=== PATIENT | female | born 1960 | race Caucasian/White ===

== ENCOUNTER 2018-08-01 22:19 | Emergency (ER) | payer OTHER ==
[~2018-08-01] VITALS: Ht 167.6 cm; Wt 49.9 kg
--- NOTE | 2018-08-01 22:45 | NUR ---
PT BIBS. C/O "HAVING ABD FOR A FEW DAYS NOW, -DYSURIA. -DIARRHEA" AOX.4 AMBULATORY
[2018-08-01] MEDS ORDERED: MORPHINE SULFATE INJ 4 MG/ML DISP.SYRIN ONE (22:56)
[2018-08-01] MEDS ORDERED: METOCLOPRAMIDE HCL 10 MG/2 ML VIAL ONE (22:56)
[2018-08-01 22:58] LABS: BASOPHILS % (AUTO) 0.1 % (0.0-2.0); HEMATOCRIT 34 % (33-45); HEMOGLOBIN 11.8 g/dL (11.5-14.8); LYMPHOCYTES # (AUTO) 0.3 /CMM (0.8-4.8); LYMPHOCYTES % (AUTO) 6.4 % (20.0-44.0); MEAN CORPUSCULAR HGB CONC 35 g/dl (31.0-36.0); MEAN CORPUSCULAR VOLUME 108 fL (82-100); MONOCYTES # (AUTO) 0.6 /CMM (0.1-1.30); MONOCYTES % (AUTO) 12.8 % (2.0-12.0); NEUTROPHILS # (AUTO) 3.9 /CMM (1.8-8.9); NEUTROPHILS % (AUTO) 80.7 % (43.0-81.0); PLATELET COUNT (AUTO) 269 /CMM (150-450); RED BLOOD CELL COUNT(AUTO) 3.15 MIL/uL (4.0-5.2); WHITE BLOOD COUNT (AUTO) 4.8 K/uL (4.3-11.0)
[2018-08-01] MEDS ORDERED: MORPHINE SULFATE INJ 2 MG/ML DISP.SYRIN IV ONE (23:00)
[2018-08-01] MEDS ORDERED: METOCLOPRAMIDE HCL 10 MG/2 ML VIAL IV ONE (23:00)
[2018-08-01] MEDS ORDERED: IV NS 0.9% 1,000 ML BAG IV ONE (23:00)
[2018-08-01 23:07] LABS: CARBON DIOXIDE 29 mmol/L (21-32); CHLORIDE 105 mmol/L (98-107); CREATININE 1.1 mg/dL (0.6-1.3); GLUCOSE 104 mg/dL (74-106); POTASSIUM 3.9 mmol/L (3.5-5.1); SODIUM SERUM 141 mmol/L (136-145); UREA NITROGEN, BLOOD 15 mg/dL (7-18)
[2018-08-01 23:12] LABS: ALANINE AMINOTRANSFERASE 39 U/L (12-78); ALBUMIN 3.9 g/dL (3.4-5.0); ALKALINE PHOSPHATASE 66 U/L (46-116); ASPARTATE AMINOTRANSFERASE 18 U/L (15-37); BILIRUBIN,DIRECT 0.1 mg/dL (0.0-0.2); BILIRUBIN,TOTAL 0.3 mg/dL (0.2-1.0); LIPASE 65 U/L (73-393); TOTAL PROTEIN, SERUM 6.5 g/dL (6.4-8.2)
[2018-08-02 00:23] LABS: APPEARANCE,URINE Cloudy (CLEAR); BILIRUBIN,URINE Negative (NEGATIVE); BLOOD, URINE Moderate Ery/uL (NEGATIVE); COLOR,URINE Other (YELLOW); KETONES,URINE Negative (NEGATIVE); LEUKOCYTE ESTERASE ,URINE Negative (NEGATIVE); NITRITE, URINE Negative (NEGATIVE); PH,URINE 7.5 (5.0-8.0); PROTEIN,URINE Negative (NEGATIVE); UGLUCOSE Negative (NEGATIVE); UROBILINOGEN,URINE 0.2 EU/dL (0.2)
[2018-08-02] MEDS ORDERED: HYDROMORPHONE INJ 0.5 MG/0.5 ML SYRINGE IV ONE ×2 (00:30→01:00)
[2018-08-02] MEDS ORDERED: HYDROMORPHONE 1 MG/1 ML DISP.SYRIN ONE ×2 (00:34→01:02)
[2018-08-02 00:47] LABS: BACTERIA,URINE None seen /HPF (None Seen); SQUAMOUS EPITHELIAL CELL,UR Few /HPF (None Seen); URINE AMORPHOUS URATE Moderate /HPF (None Seen); WBC,URINE 0-2 /HPF (0-3)
[2018-08-02 01:54] VITALS: BP 128/77
== END 2018-08-02 01:55 | disposition home or self-care (01) ==
LOC: ER 22:23
DX: N13.2 Hydronephrosis with renal and ureteral calculous obstruction (principal); I10 Essential (primary) hypertension; Z90.710 Acquired absence of both cervix and uterus; Z90.89 Acquired absence of other organs; Z98.890 Other specified postprocedural states; Z60.2 Problems related to living alone; Z88.8 Allergy status to other drugs, medicaments and biological substances
CPT/HCPCS: 36415; 74176; 80048; 80076; 81001; 83690; 84484; 85025; 96374; 96375; 96376; 99284; J1170 ×2; J2270; J2765; J7030; 81000-TC

== ENCOUNTER 2019-07-05 18:57 | Emergency (ER) | payer OTHER ==
[~2019-07-05] VITALS: Ht 162.6 cm; Wt 52.2 kg
[2019-07-05] MEDS ORDERED: HYDROMORPHONE INJ 0.5 MG/0.5 ML SYRINGE IV ONE (19:30)
[2019-07-05] MEDS ORDERED: IV NS 0.9% 1,000 ML BAG IV ONE (19:30)
--- NOTE | 2019-07-05 19:30 | NUR ---
PATIENT CAME TO ER BED 10 BIB RA C/O MIDEPIGASTRIC ABDOMINAL PAIN FOR 2x DAYS. PATIENT STATES THAT SHE WAS HAVING PAIN SO SHE CALLED 911. CURRENTLY DENIES NAUSEA. PATIENT APPEARS ANXIOUS. AAOX4. NO SOB. BREATHING EVENLY AND UNLABORED. CONNECTED TO MONITOR.
--- NOTE | 2019-07-05 19:35 | NUR ---
BLOOD DRAWN AND SENT TO THE LAB FOR TESTING.
[2019-07-05 19:45] LABS: BASOPHILS % (AUTO) 0.7 % (0.0-2.0); EOSINOPHILS % (AUTO) 0.5 % (0.0-6.0); HEMATOCRIT 41 % (33-45); HEMOGLOBIN 13.6 g/dL (11.5-14.8); LYMPHOCYTES # (AUTO) 0.8 /CMM (0.8-4.8); LYMPHOCYTES % (AUTO) 17.4 % (20.0-44.0); MEAN CORPUSCULAR HGB CONC 33 g/dl (31.0-36.0); MEAN CORPUSCULAR VOLUME 96 fL (82-100); MONOCYTES # (AUTO) 0.5 /CMM (0.1-1.30); MONOCYTES % (AUTO) 10.1 % (2.0-12.0); NEUTROPHILS # (AUTO) 3.4 /CMM (1.8-8.9); NEUTROPHILS % (AUTO) 71.3 % (43.0-81.0); PLATELET COUNT (AUTO) 304 /CMM (150-450); RED BLOOD CELL COUNT(AUTO) 4.26 MIL/uL (4.0-5.2); WHITE BLOOD COUNT (AUTO) 4.8 K/uL (4.3-11.0)
[2019-07-05] MEDS ORDERED: HYDROMORPHONE 1 MG/1 ML DISP.SYRIN ONE (19:46)
[2019-07-05 19:54] LABS: CALCIUM, SERUM 9.4 mg/dL (8.5-10.1); CREATININE 0.7 mg/dL (0.6-1.3); POTASSIUM 3.8 mmol/L (3.5-5.1)
--- NOTE | 2019-07-05 19:57 | NUR ---
US at bedside.
[2019-07-05 20:00] LABS: ALBUMIN 4.3 g/dL (3.4-5.0); BILIRUBIN,DIRECT 0.1 mg/dL (0.0-0.2); BILIRUBIN,TOTAL 0.6 mg/dL (0.2-1.0); TOTAL PROTEIN, SERUM 6.9 g/dL (6.4-8.2)
--- NOTE | 2019-07-05 20:12 | NUR ---
US finished with procedure.
--- NOTE | 2019-07-05 20:18 | NUR ---
TAKEN TO CT
--- NOTE | 2019-07-05 20:25 | NUR ---
RETURNED FROM CT.
--- NOTE | 2019-07-05 21:09 | NUR ---
URINE COLLECTED AND SENT TO THE LAB
[2019-07-05 21:28] LABS: APPEARANCE,URINE Slightly Cloudy (CLEAR); BILIRUBIN,URINE Negative (NEGATIVE); BLOOD, URINE Trace-lysed Ery/uL (NEGATIVE); COLOR,URINE Yellow (YELLOW); KETONES,URINE 15 (NEGATIVE); LEUKOCYTE ESTERASE ,URINE Negative (NEGATIVE); NITRITE, URINE Negative (NEGATIVE); PH,URINE 7.5 (5.0-8.0); PROTEIN,URINE Negative (NEGATIVE); UGLUCOSE Negative (NEGATIVE); UROBILINOGEN,URINE 0.2 EU/dL (0.2)
[2019-07-05] MEDS ORDERED: KETOROLAC TROMETHAMINE 15 MG/ML VIAL ONE (21:28)
[2019-07-05] MEDS ORDERED: KETOROLAC TROMETHAMINE INJ 30 MG/ML VIAL IV ONE (21:30)
[2019-07-05 21:32] LABS: BACTERIA,URINE Few /HPF (None Seen); SQUAMOUS EPITHELIAL CELL,UR Few /HPF (None Seen); WBC,URINE 0-2 /HPF (0-3)
[2019-07-05 21:33] LABS: URINE AMORPHOUS PHOSPHATES Moderate /HPF (None Seen)
[2019-07-05 21:45] VITALS: BP 121/76
--- NOTE | 2019-07-05 21:45 | NUR ---
Called Taxi for Patient. Patient will wait in waiting room.
--- NOTE | 2019-07-05 21:45 | NUR ---
IV removed. Catheter intact and site benign. Pressure and 4x4 applied to site. No bleeding noted. Patient discharged to home in stable condition. Written and verbal after care instructions given. Patient verbalizes understanding of instruction.
== END 2019-07-05 21:46 | disposition home or self-care (01) ==
LOC: ER 18:59
DX: R10.13 Epigastric pain (principal); R94.31 Abnormal electrocardiogram [ECG] [EKG]; E86.0 Dehydration; F32.9 Major depressive disorder, single episode, unspecified; Z90.89 Acquired absence of other organs; Z98.890 Other specified postprocedural states; Z88.8 Allergy status to other drugs, medicaments and biological substances; Z60.2 Problems related to living alone
CPT/HCPCS: 36415; 74176; 76705; 80048; 80076; 81001; 83690; 85025; 93005; 96361; 96374; 96375; 99285; J1170; J1885; J7030; 81000-TC

== ENCOUNTER 2020-02-18 16:17 | Emergency (ER) | payer OTHER ==
[~2020-02-18] VITALS: Ht 165.1 cm; Wt 61.2 kg
[2020-02-18] MEDS ORDERED: DICYCLOMINE HCL INJ 20 MG/2 ML AMPUL IM ONE ×2 (17:30→17:41)
[2020-02-18] MEDS ORDERED: IV NS 0.9% 1,000 ML BAG IV ONE (17:30)
[2020-02-18 18:24] LABS: BASOPHILS # (AUTO) 0.1 /CMM (0.0-0.2); BASOPHILS % (AUTO) 2.2 % (0.0-2.0); HEMATOCRIT 36 % (33-45); HEMOGLOBIN 11.9 g/dL (11.5-14.8); LYMPHOCYTES # (AUTO) 0.8 /CMM (0.8-4.8); MEAN CORPUSCULAR HGB CONC 33 g/dl (31.0-36.0); MEAN CORPUSCULAR VOLUME 99 fL (82-100); MONOCYTES # (AUTO) 0.2 /CMM (0.1-1.30); MONOCYTES % (AUTO) 7.6 % (2.0-12.0); NEUTROPHILS # (AUTO) 2.1 /CMM (1.8-8.9); NEUTROPHILS % (AUTO) 64.2 % (43.0-81.0); PLATELET COUNT (AUTO) 309 /CMM (150-450); RED BLOOD CELL COUNT(AUTO) 3.59 MIL/uL (4.0-5.2); WHITE BLOOD COUNT (AUTO) 3.2 K/uL (4.3-11.0)
[2020-02-18] MEDS ORDERED: BUPR-319 PO (18:31)
[2020-02-18] MEDS ORDERED: PANT40TA49 PO (18:31)
[2020-02-18] MEDS ORDERED: GABA600T12 PO (18:31)
[2020-02-18] MEDS ORDERED: TRAZ-257 PO (18:31)
[2020-02-18] MEDS ORDERED: ESCI20TA PO (18:31)
[2020-02-18] MEDS ORDERED: FOLI0.8C PO (18:31)
--- NOTE | 2020-02-18 18:38 | NUR ---
home, diarrhea x 2 weeks. diagnosed w/ covid19 7 days ago. took tylenol for fever 2 hrs ago. PT AAOX4, VSS. RR EVEN & UNLABORED. DENIES CP, SOB, DIZZINESS, N/V AT THIS TIME. PT SEEN & EVAL'D BY DR. JUNG. WILL CONT TO MONITOR.
[2020-02-18 18:45] LABS: ALBUMIN 3.1 g/dL (3.4-5.0); BILIRUBIN,DIRECT 0.1 mg/dL (0.0-0.2); BILIRUBIN,TOTAL 0.1 mg/dL (0.2-1.0); CALCIUM, SERUM 8.5 mg/dL (8.5-10.1); CREATININE 0.7 mg/dL (0.6-1.3); TOTAL PROTEIN, SERUM 6.7 g/dL (6.4-8.2)
[2020-02-18 19:13] LABS: POTASSIUM 3.9 mmol/L (3.5-5.1)
--- NOTE | 2020-02-18 20:12 | NUR ---
Patient discharged to home in stable condition. Written and verbal after care instructions given. Patient verbalizes understanding of instruction. IV removed. Catheter intact and site benign. Pressure and 4x4 applied to site. No bleeding noted.
[2020-02-18 20:13] VITALS: BP 115/60
== END 2020-02-18 20:13 | disposition home or self-care (01) ==
LOC: ER 16:23
DX: U07.1 COVID-19 (principal); R19.7 Diarrhea, unspecified; E86.0 Dehydration; Z90.710 Acquired absence of both cervix and uterus; Z90.49 Acquired absence of other specified parts of digestive tract; D72.819 Decreased white blood cell count, unspecified; K57.90 Diverticulosis of intestine, part unspecified, without perforation or abscess without bleeding
CPT/HCPCS: 36415; 80048; 80076; 83690; 85025; 96360; 99283; J7030; J0500

== ENCOUNTER 2021-06-04 13:17 | Emergency (ER) | payer OTHER ==
[~2021-06-04] VITALS: Ht 167.6 cm; Wt 63.5 kg
[~2021-06-04 13:17] MED LIST: BUPR-319 PO; ESCI20TA PO; FOLI0.8C PO; GABA600T12 PO; PANT40TA49 PO; TRAZ-257 PO
--- NOTE | 2021-06-04 13:40 | NUR ---
BIBS FROM [facility] THIS 60/F WITH CC OF GLF. PATIENT SUSTAINED 1.5CM LACERATION ON RIGHT ELBOW WHEN SHE HIT THE GROUND, WITH SWELLING ON THE RIGHT OCCIPITAL AREA WHEN SHE HIT THE FALL AND BRUISE ON RIGHT BACK. PLACED COMFORTABLY ON BED 11. PATIENT FEELS DIZZY AND NAUSEATED. VITALS CHECKED.
--- NOTE | 2021-06-04 14:00 | NUR ---
COVID ANTIGEN SWAB DONE AND SENT TO THE LAB
--- NOTE | 2021-06-04 14:03 | NUR ---
DR MERIDA AT THE BEDSIDE
[2021-06-04] MEDS ORDERED: LIDOCAINE 1%-EPI 1:100,000 20 ML VIAL ONE (14:06)
--- NOTE | 2021-06-04 14:22 | NUR ---
THE PATIENT IS TAKEN TO CT [facility]IA [facility]
--- NOTE | 2021-06-04 14:32 | NUR ---
THE PATIENT IS BACK FROM CT VIA [facility]
[2021-06-04] MEDS ORDERED: HYDROCODONE/APAP 5/325MG TABLET PO ONE (15:30)
[2021-06-04] MEDS ORDERED: HYDROCODONE/APAP 5/325MG TABLET ONE (15:33)
[2021-06-04 15:58] VITALS: BP 116/75
--- NOTE | 2021-06-04 15:58 | NUR ---
Patient discharged to home in stable condition. Written and verbal after care instructions given. Patient verbalizes understanding of instruction.
== END 2021-06-04 15:59 | disposition home or self-care (01) ==
LOC: ER 13:20
DX: S09.90XA Unspecified injury of head, initial encounter (principal); S51.011A Laceration without foreign body of right elbow, initial encounter; S20.211A Contusion of right front wall of thorax, initial encounter; W01.0XXA Fall on same level from slipping, tripping and stumbling without subsequent striking against object, initial encounter; Y93.E1 Activity, personal bathing and showering; Y92.031 Bathroom in apartment as the place of occurrence of the external cause; Z20.822 Contact with and (suspected) exposure to COVID-19; Z90.710 Acquired absence of both cervix and uterus; Z90.49 Acquired absence of other specified parts of digestive tract; Z79.899 Other long term (current) drug therapy
CPT/HCPCS: 12001; 70450; 71100; 73080; 87426; 99285; A6403; C9803; J3490

== ENCOUNTER 2021-06-12 11:13 | Emergency (ER) | payer OTHER ==
[~2021-06-12] VITALS: Ht 167.6 cm; Wt 72.6 kg
[2021-06-12 11:26] VITALS: BP 112/86
== END 2021-06-12 11:34 | disposition home or self-care (01) ==
LOC: ER 11:17
DX: S51.011D Laceration without foreign body of right elbow, subsequent encounter (principal); Z98.890 Other specified postprocedural states; Z90.89 Acquired absence of other organs; Z88.8 Allergy status to other drugs, medicaments and biological substances; Z79.899 Other long term (current) drug therapy; X58.XXXD Exposure to other specified factors, subsequent encounter

== ENCOUNTER 2022-06-11 09:22 | Inpatient (IN) | payer MEDICARE, OTHER ==
[~2022-06-11] VITALS: Ht 165.1 cm; Wt 65.3 kg
--- NOTE | 2022-06-11 09:25 | NUR ---
SEEN BY DR. JUNG
--- NOTE | 2022-06-11 09:25 | NUR ---
RECEIVED PT CAME FROM HOME C/O DIZZNESS FOR ONE WEEK AWAKE AND ALERT NO WEEKNEE
[2022-06-11] MEDS ORDERED: IV NS 0.9% 1,000 ML BAG IV ONE (09:30)
[2022-06-11] MEDS ORDERED: IOHEXOL-350 100 ML VIAL IV ONE (09:59)
[2022-06-11] MEDS ORDERED: CT SWABBABLE VALVE TRANS SET 1 EA INFUS.SET MC ONE (09:59)
[2022-06-11] MEDS ORDERED: IV NS 0.9% 250 ML IV ONE (09:59)
--- NOTE | 2022-06-11 10:05 | NUR ---
INSERTED ANGO CATHETER G 20 ON RT AC BLOOD DROW AND SENT TO LAB
--- NOTE | 2022-06-11 10:10 | NUR ---
TO CT SCNA OF HEAD
[2022-06-11 10:20] LABS: BASOPHILS % (AUTO) 1.2 % (0.0-2.0); EOSINOPHILS % (AUTO) 2.9 % (0.0-6.0); HEMATOCRIT 35 % (33-45); HEMOGLOBIN 11.2 g/dL (11.5-14.8); LYMPHOCYTES # (AUTO) 1.3 K/uL (0.8-4.8); LYMPHOCYTES % (AUTO) 39.5 % (20.0-44.0); MEAN CORPUSCULAR HGB CONC 32 g/dl (31.0-36.0); MEAN CORPUSCULAR VOLUME 96 fL (82-100); MONOCYTES # (AUTO) 0.3 K/uL (0.1-1.30); MONOCYTES % (AUTO) 10.4 % (2.0-12.0); NEUTROPHILS # (AUTO) 1.5 K/uL (1.8-8.9); PLATELET COUNT (AUTO) 259 K/uL (150-450); RED BLOOD CELL COUNT(AUTO) 3.66 MIL/uL (4.0-5.2); WHITE BLOOD COUNT (AUTO) 3.3 K/uL (4.3-11.0)
--- NOTE | 2022-06-11 10:35 | NUR ---
APOLONIA YEBOAH SENT TO LAB
--- NOTE | 2022-06-11 10:40 | NUR ---
UA SENT TO LAB
[2022-06-11 10:50] LABS: ALANINE AMINOTRANSFERASE 19 U/L (12-78); ALBUMIN 3.6 g/dL (3.4-5.0); ALKALINE PHOSPHATASE 82 U/L (46-116); ASPARTATE AMINOTRANSFERASE 14 U/L (15-37); BILIRUBIN,DIRECT 0.1 mg/dL (0.0-0.2); BILIRUBIN,TOTAL 0.2 mg/dL (0.2-1.0); CALCIUM, SERUM 8.5 mg/dL (8.5-10.1); CARBON DIOXIDE 28 mmol/L (21-32); CHLORIDE 105 mmol/L (98-107); CREATININE 0.7 mg/dL (0.6-1.3); GLUCOSE 117 mg/dL (74-106); POTASSIUM 3.8 mmol/L (3.5-5.1); SODIUM SERUM 140 mmol/L (136-145); TOTAL PROTEIN, SERUM 6.3 g/dL (6.4-8.2); UREA NITROGEN, BLOOD 12 mg/dL (7-18)
[2022-06-11] MEDS ORDERED: ASPIRIN 81 MG TAB.CHEW PO ONE (11:30)
[2022-06-11] MEDS ORDERED: ASPIRIN 325 MG TABLET ONE (11:32)
[2022-06-11] MEDS ORDERED: ACETAMINOPHEN 325 MG TABLET PO ONE (12:00)
[2022-06-11] MEDS ORDERED: ACETAMINOPHEN 325 MG TABLET ONE (12:09)
[2022-06-11] MEDS ORDERED: DULO60CA64 PO (12:20)
[2022-06-11] MEDS ORDERED: LURA60TA3 PO (12:20)
[2022-06-11] MEDS ORDERED: PANT20TA17 PO (12:20)
[2022-06-11] MEDS ORDERED: ONDANSETRON HCL/PF 4 MG/2 ML VIAL IVP PRN (13:30)
--- NOTE | 2022-06-11 13:59 | NUR ---
NO DISSTRSS NO WEEKNEESS WALKING WITH STDIY GAIT
--- NOTE | 2022-06-11 14:05 | NUR ---
COVID SWAB SENT TO 2ND TIME
--- NOTE | 2022-06-11 14:40 | NUR ---
WHIT AT BED SIDE (SUZIE MIDDLETON )
--- NOTE | 2022-06-11 15:00 | NUR ---
AT BED SIDE SPOOKING WITH LOBITO ABOUT PROBLEME AND PLAN OF CARE
--- NOTE | 2022-06-11 15:29 | NUR ---
BED ASSIGNED IS 313-1
--- NOTE | 2022-06-11 15:50 | NUR ---
HAND OFF BILL .A RN TO ROOM 313
--- NOTE | 2022-06-11 15:58 | NUR ---
pt awake and alert
--- NOTE | 2022-06-11 16:15 | NUR ---
RN NOTE- PT ARRIVED FROM ED FOR ADMISSION. DIZZINESS / VERTIGO. AOX4, AMBULATORY, SKIN INTACT . CALM INTERACTIVE. BEGIN ADMISSION PROCESS
--- NOTE | 2022-06-11 16:20 | NUR ---
CLERICAL SUPPORT SPECIALIST NOTE- 61 Y/O FEMALE BROUGHT TO ED FOR SYNCOPE. PT W HX OF DIVERTICULITIS, COLON RESECTION AND HYSTERECTOMY. VS- BP-109/69, HR- 68, RR- 20, T -96.9, O2 SATS 99% RA. ACCUCHECK BS-124. PT IS AOX4 AND FORGETFUL. AMBULATORY , SKIN INTACT. MODERNA COVID VACC X 2, SIDE RAILS UP, CALL LIGHT IN REACH, ORDERS RECEIVED AND COMPLIED WITH. MONITOR / ASSIST
[2022-06-11] MEDS: BLOOD SUGAR DIAGNOSTIC 1 EACH STRIP IN SCH ×2 (17:10→21:30)
[2022-06-11] MEDS: ENOXAPARIN SODIUM 40 MG/0.4 ML DISP.SYRIN SQ SCH (17:57)
[2022-06-11] MEDS ORDERED: BLOOD SUGAR DIAGNOSTIC 1 EACH STRIP IN SCH (18:00)
--- NOTE | 2022-06-11 18:22 | NUR ---
RN CLOSING NOTE- PT IN BED , AWAKE, AOX 4, SOME PERIODIC CONFUSION/ FORGETFULNESS. VS STABLE, CALL LIGHT IN REACH, SIDE RAILS UP, ATE 100% DINNER. FOR AM LABS AND FURTHER EVAL. MONITOR / ASSIST
[2022-06-11] MEDS: ACETAMINOPHEN 325 MG TABLET PO PRN (19:38)
--- NOTE | 2022-06-11 19:49 | NUR ---
GOLF SALES ASSOCIATE OPENING NOTE PATIENT AWAKE IN BED WITH DAUGHTER AT BEDSIDE, PT ALERT/ORIENTED X 4, ABLE TO MAKE NEEDS KNOWN. PER DAUGHTER AND PATIENT, PATIENT HAS PERIODS OF FORGETFULNESS D/T PTSD. PATIENT C/O OF HEADACHE, TYLENOL 650 MG GIVEN ORDERED PER DR. VILLALOBOS. PATIENT ON EXTERNAL REFRACTORY SPECIALIST READING SINUS RHYTHM, HR: 78. IV ACCESS ON RAC #20G INTACT AND SALINE LOCKED. SAFETY MEASURES IN PLACE: CALL LIGHT WITHIN REACH, SIDE RAILS UP X 2, BED LOCKED IN LOWEST POSITION, BED ALARM ON. WILL CONTINUE TO MONITOR PATIENT
[2022-06-11 20:00] VITALS: BP 121/70
[2022-06-11] MEDS: SIMVASTATIN 20 MG TABLET PO SCH (21:29)
[2022-06-11] MEDS: TRAZODONE 50 MG TABLET PO SCH (21:30)
--- NOTE | 2022-06-11 23:33 | NUR ---
LOOM BLOWER NOTE PATIENT VERY ANXIOUS RIGHT NOW, PATIENT HAS HISTORY OF PTSD. CONTACTED PILING CUTTER RIVERA CHIANG WITH ORDER FOR ATIVAN 0.5 MG PO X 1 TIME, ORDER VERIFIED AND CARRIED OUT
[2022-06-12] VITALS: BP 109/82
[2022-06-12] MEDS ORDERED: LORAZEPAM 0.5 MG TABLET PO ONE
[2022-06-12 04:00] VITALS: BP 92/60
[2022-06-12] MEDS: BLOOD SUGAR DIAGNOSTIC 1 EACH STRIP IN SCH ×4 (06:47→21:35)
[2022-06-12 06:48] LABS: BASOPHILS % (AUTO) 1.1 % (0.0-2.0); HEMATOCRIT 35 % (33-45); LYMPHOCYTES # (AUTO) 1.4 K/uL (0.8-4.8); MEAN CORPUSCULAR HGB CONC 32 g/dl (31.0-36.0); MEAN CORPUSCULAR VOLUME 97 fL (82-100); MONOCYTES # (AUTO) 0.3 K/uL (0.1-1.30); MONOCYTES % (AUTO) 9.7 % (2.0-12.0); NEUTROPHILS # (AUTO) 1.3 K/uL (1.8-8.9); NEUTROPHILS % (AUTO) 41.2 % (43.0-81.0); PLATELET COUNT (AUTO) 228 K/uL (150-450); RED BLOOD CELL COUNT(AUTO) 3.58 MIL/uL (4.0-5.2); WHITE BLOOD COUNT (AUTO) 3.2 K/uL (4.3-11.0)
--- NOTE | 2022-06-12 07:19 | NUR ---
MACHINE PRECISION ETCHER CLOSING NOTE PATIENT SLEEPING IN BED, ALERT/ORIENTED X 4, HOWEVER PATIENT HAS PTSD WITH EPISODES OF DISSOCIATIVE BLACKOUTS, THEREFORE PATIENT CONFUSED AT TIMES AND NEEDS REORIENTATION, HAPPENED TWICE THIS SHIFT. PATIENT STABLE ON RA, NO S/S OF DISTRESS OR SOB NOTED, BREATHING EVEN AND UNLABORED. PATIENT ON TELE MONITOR READING SINUS RHYTHM, HR: 66. IV ACCESS ON RAC #20G INTACT AND SALINE LOCKED. MEDICATIONS GIVEN ORDERED, PATIENT NEEDS MET THROUGHOUT SHIFT, PT MORE CALM AND SLEPT THE REST OF THE NIGHT AFTER ONE TIME DOSE OF ATIVAN 0.5 MG PO. SAFETY MEASURES IN PLACE: CALL LIGHT WITHIN REACH, SIDE RAILS UP X 2, BED LOCKED IN LOWEST POSITION. ENDORSED TO DAYSHIFT RN FOR CONTINUITY OF CARE
--- NOTE | 2022-06-12 07:45 | NUR ---
MEDICAL TRANSLATOR OPENING NOTE RECEIVED PT ASLEEP IN BED, EASILY BEING AWAKENED, A/O X 3, ABLE TO MAKE NEEDS KNOWN. PER PATIENT, PATIENT HAS PERIODS OF FORGETFULNESS D/T PTSD. PT IS ON RA BREATHING EVEN AND NON LABORED. PATIENT ON EXTERNAL FINGER LIFT OPERATOR READING SINUS RHYTHM, HR @74 BPM. IV ACCESS ON RAC #20G INTACT AND PATENT, SALINE LOCKED. SAFETY MEASURES IN PLACE: CALL LIGHT WITHIN REACH, SIDE RAILS UP X 2, BED LOCKED IN LOWEST POSITION, BED ALARM ON. WILL CONTINUE TO MONITOR.
[2022-06-12 08:05] LABS: CALCIUM, SERUM 8.6 mg/dL (8.5-10.1); CREATININE 0.9 mg/dL (0.6-1.3); POTASSIUM 3.8 mmol/L (3.5-5.1)
[2022-06-12 08:13] VITALS: BP 116/71
[2022-06-12] MEDS: PANTOPRAZOLE 40 MG TABLET.DR PO SCH (08:16)
[2022-06-12] MEDS: DULOXETINE HCL 30 MG CAPSULE.DR PO SCH (08:16)
[2022-06-12] MEDS: ASPIRIN EC 325 MG TABLET.DR PO SCH (08:16)
[2022-06-12] MEDS: BUPROPION XL 150 MG TAB.ER.24 PO SCH (08:16)
[2022-06-12 14:17] LABS: CHOLESTEROL 175 mg/dL (<200); HDL CHOLESTEROL 64 mg/dL (40-60); LDL 95 mg/dL (0-99); TRIGLYCERIDES 157 mg/dL (30-150)
[2022-06-12 16:00] VITALS: BP 141/80
[2022-06-12] MEDS ORDERED: GADOTERATE MEGLUMINE 10 MMOL/20 ML VIAL IV ONE (16:36)
[2022-06-12] MEDS: ENOXAPARIN SODIUM 40 MG/0.4 ML DISP.SYRIN SQ SCH (17:28)
--- NOTE | 2022-06-12 18:36 | NUR ---
ENGINEERING AID CLOSING NOTE PATIENT RESTING IN BED, A/OX3, HER DAUGHTER BY BEDSIDE, WITH EPISODES OF FORGETFULNESS AND ASKING WHAT SHE IS DOING HERE. PATIENT STABLE ON RA, NO S/S OF DISTRESS OR SOB NOTED, BREATHING EVEN AND NON LABORED. PATIENT ON TELE MONITOR READING SINUS RHYTHM, HR: 80. NIHSS AND NEUROLOGICAL ASSESSMENT DONE DURING THE SHIFT. IV ACCESS ON RAC #20G INTACT AND SALINE LOCKED. MEDICATIONS GIVEN ORDERED. ALL ORDERS CARRIED OUT. SAFETY MEASURES IN PLACE: CALL LIGHT WITHIN REACH, SIDE RAILS UP X 2, BED LOCKED IN LOWEST POSITION. ENDORSED TO NEXT SHIFT NURSE FOR FORREST.
--- NOTE | 2022-06-12 19:15 | NUR ---
ATTORNEY LAWYER OPENING NOTE RECEIVED PATIENT FROM AM NURSE; PATIENT RESTING IN BED, A/O X 3 , ENDORSED THAT PT HAS EPISODES OF FORGETFULNESS DURING DAY SHIFT; STABLE ON ROOM AIR, NO S/S OF DISTRESS OR SOB NOTED, BREATHING EVENLY; ON TELE MONITOR READING SINUS RHYTHM HR AT 80S BPM; WITH IV ACCESS ON RAC #20G INTACT AND SALINE LOCKED; SAFETY MEASURES IN PLACE; CALL LIGHT WITHIN REACH, SIDE RAILS UP X 2, BED LOCKED IN LOWEST POSITION; ENCOURAGED VERBALIZATION OF NEEDS; WILL CONTINUE TO MONITOR THROUGHOUT SHIFT
[2022-06-12 20:00] VITALS: BP_SYST 121; BP_DIAS 71; BP_DIAS 74
[2022-06-12] MEDS: SIMVASTATIN 20 MG TABLET PO SCH (21:25)
[2022-06-12] MEDS: TRAZODONE 50 MG TABLET PO SCH (21:25)
[2022-06-13] VITALS: BP 107/64
[2022-06-13 04:00] VITALS: BP 117/65
[2022-06-13] MEDS ORDERED: ALPRAZOLAM 0.25 MG TABLET PO PRN (04:00)
--- NOTE | 2022-06-13 04:00 | NUR ---
UTILITY TRACTOR OPERATOR NOTE PATIENT INSISTED ON TAKING ATIVAN. PER PATIENT, THEY GAVE HER ATIVAN LAST NIGHT. INFORMED DR CHIANG ABOUT THE PATIENT'S REQUEST. ORDERED XANAX 0.25MG PO Q12HR PRN. ADMINISTERED XANAX PRN ORDERED. PATIENT TOLERATED WELL. WILL CONTINUE TO MONITOR
[2022-06-13] MEDS: BLOOD SUGAR DIAGNOSTIC 1 EACH STRIP IN SCH ×2 (06:30→11:20)
[2022-06-13] MEDS: ACETAMINOPHEN 325 MG TABLET PO PRN (06:45)
--- NOTE | 2022-06-13 06:50 | NUR ---
TRANSFER AND PUMPHOUSE OPERATOR CHIEF NOTE PATIENT COMPLAINED OF HEADACHE AND ASKED FOR MEDICATION THAT CAN ALLEVIATE HER HEADACHE. ADMINISTERED TYLENOL PRN PRESCRIBED; PATIENT CURRENTLY SLEEPING; WILL CONTINUE TO MONITOR
--- NOTE | 2022-06-13 06:54 | NUR ---
SLIP DUMPER CLOSING NOTE PATIENT RESTING IN BED, A/O X 3 , PT HAS EPISODES OF FORGETFULNESS DURING DAY SHIFT; STABLE ON ROOM AIR WITH NO S/S OF CARDIAC OR RESPIRATORY DISTRESS NOTED, BREATHING EVENLY AND UNLABORED; HOOKED ON TELE MONITORING READING SINUS RHYTHM HR AT 80S BPM; WITH IV ACCESS ON RAC #20G SALINE LOCK - INTACT AND PATENT; FREQUENT NEURO ASSESSMENT CHECKED; ADMINISTERED MEDICATIONS PRESCRIBED; PATIENT'S NEEDS ATTENDED; MONITORED PATIENT ACCORDINGLY; SAFETY MEASURES IN PLACE; CALL LIGHT WITHIN REACH, SIDE RAILS UP X 2, BED LOCKED IN LOWEST POSITION; WILL ENDORSE TO AM NURSE FOR FORREST.
--- NOTE | 2022-06-13 07:42 | NUR ---
RN TRANSPLANT OPENING NOTE RECEIVED PT AWAKE IN BED, A/O X 3, ABLE TO MAKE NEEDS KNOWN. PT IS ON RA BREATHING EVEN AND NON LABORED. NO S/S OF DISTRESS OR SOB NOTED. PATIENT ON EXTERNAL MARKETING COMMUNICATIONS ASSOCIATE READING SINUS RHYTHM, HR @72 BPM. IV ACCESS ON RAC #20G INTACT AND PATENT, SALINE LOCKED. SAFETY MEASURES IN PLACE: CALL LIGHT WITHIN REACH, SIDE RAILS UP X 2, BED LOCKED IN LOWEST POSITION, BED ALARM ON. WILL CONTINUE TO MONITOR.
[2022-06-13 07:51] VITALS: BP 127/76
[2022-06-13] MEDS: ASPIRIN EC 325 MG TABLET.DR PO SCH (08:14)
[2022-06-13] MEDS: PANTOPRAZOLE 40 MG TABLET.DR PO SCH (08:15)
[2022-06-13] MEDS: DULOXETINE HCL 30 MG CAPSULE.DR PO SCH (08:15)
[2022-06-13] MEDS: BUPROPION XL 150 MG TAB.ER.24 PO SCH (08:15)
--- NOTE | 2022-06-13 11:30 | NUR ---
Stroke was ruled out no post stroke depression assessment needed by SS.
[2022-06-13] MEDS ORDERED: IBUPROFEN 400 MG TABLET PO ONE (12:00)
--- NOTE | 2022-06-13 12:00 | NUR ---
RN NOTE PT COMPLAINED OF HEADACHE, DR GRACE ORDERED IBUPROFEN 400MG, ONCE PO. ADMINISTERED ORDERED. WILL CONTINUE TO MONITOR.
[2022-06-13 12:04] VITALS: BP 132/76
--- NOTE | 2022-06-13 13:58 | NUR ---
ADMINISTRATIVE AIDE NOTE PATIENT DISCHARGE IN STABLE MEDICAL CONDITION. A/OX4. VS TAKEN, STABLE AND RECORDED. IV ACCESS REMOVED. NAME ARM BAND REMOVED. EXTERNAL INSTRUCTIONAL SYSTEMS DESIGNER REMOVED AND RETURNED TO TELE DESK. ALL BELONGINGS CHECKED AND BELONGING LIST SIGNED. HEALTH TEACHING AND DISCHARGE INSTRUCTIONS GIVEN AND VERBALIZED UNDERSTANDING. INSTRUCTED PATIENT IN CASE OF EMERGENCY TO CALL 911 OR GO TO NEAREST ER. PATIENT LEFT VIA WHEELCHAIR WITH NO SIGN OF DISTRESS, ACCOMPANIED BY VINER OPERATOR TO THE LOBBY. PATIENT LEFT WITH UBER, HER DAUGHTER REQUESTED UBER FOR HER. CHARGE NURSE AWARE OF DISCHARGE.
== END 2022-06-13 13:53 | disposition home or self-care (01) | DRG 880 ==
LOC: ER 09:28 → TELE 16:23
DX: F44.1 Dissociative fugue (principal); G45.4 Transient global amnesia; F07.81 Postconcussional syndrome; Z20.822 Contact with and (suspected) exposure to COVID-19; R26.81 Unsteadiness on feet; Z87.19 Personal history of other diseases of the digestive system; Z90.710 Acquired absence of both cervix and uterus; Z90.49 Acquired absence of other specified parts of digestive tract; Z88.8 Allergy status to other drugs, medicaments and biological substances; Z79.899 Other long term (current) drug therapy; F43.10 Post-traumatic stress disorder, unspecified; D64.9 Anemia, unspecified; Z98.890 Other specified postprocedural states; E77.8 Other disorders of glycoprotein metabolism; G62.9 Polyneuropathy, unspecified; D72.819 Decreased white blood cell count, unspecified; Z81.8 Family history of other mental and behavioral disorders; Z87.891 Personal history of nicotine dependence; Z91.410 Personal history of adult physical and sexual abuse; R53.1 Weakness
CPT/HCPCS: 36415; 70450-TC; 70496-TC; 70498-TC; 70547-TC; 70553-TC; 71045-TC; 80048-TC; 80061-TC; 80076-TC; 82962-TC; 83880; 84484-TC; 85025-TC; 85652-TC; 85730-TC; 87081-TC; 92526; 92611-TC; 97116-TC; 97530-TC; A9575; C9803; G0378; J1650; J7030; J7050; Q9967

== ENCOUNTER 2022-06-16 17:34 | Inpatient (IN) | payer MEDICARE ==
[~2022-06-16] VITALS: Ht 165.1 cm; Wt 64.0 kg
[~2022-06-16 17:34] MED LIST changes: +DULO60CA64 PO; -ESCI20TA PO; -FOLI0.8C PO; -GABA600T12 PO; +LURA60TA3 PO; +PANT20TA17 PO; -PANT40TA49 PO
[2022-06-16 20:30] VITALS: BP 117/70
--- NOTE | 2022-06-16 20:30 | NUR ---
RN NOTE: ADMITTED A 61-Y/O, FEMALE, FROM [facility]. ADMITTED ON A 5150 HOLD FOR DTS FOR SUICIDAL IDEATION. UPON FACE TO FACE EVALUATION, PATIENT IS ALERT AND ORIENTED X4, PATIENT APPEARS TO BE DEPRESSED, GUARDED AND PASSIVE. PATIENT DENIES SI/HI/AVH AT THIS TIME. SKIN ASSESSMENT DONE. ALL BELONGINGS WERE SCREENED FOR CONTRABAND. PATIENT'S RIGHTS WERE DISCUSSED AND BOOKLET WAS GIVEN. CONTACTED DR. FRANCISCO AND HOSPITALIST CAROLINE CHIANG AND INFORMED THEM OF THE ADMISSION. BED IN LOWEST POSITION, LOCKED. SAFETY PRECAUTIONS MAINTAINED. WILL CONTINUE TO MONITOR Q15 MINS FOR MOOD, SAFETY AND BEHAVIOR.
[2022-06-16] MEDS ORDERED: ACETAMINOPHEN 325 MG TABLET PO PRN (21:00)
[2022-06-16] MEDS ORDERED: TEMAZEPAM 7.5 MG CAPSULE PO PRN (21:00)
[2022-06-16] MEDS ORDERED: MAG HYDROX/AL HYDROX/SIMETH 30 ML UDC PO PRN (21:00)
[2022-06-16] MEDS ORDERED: BLOOD SUGAR DIAGNOSTIC 1 EACH STRIP IN ONE (21:00)
[2022-06-16] MEDS: LORAZEPAM 0.5 MG TABLET PO PRN (21:59)
[2022-06-17 06:47] LABS: BASOPHILS % (AUTO) 0.9 % (0.0-2.0); EOSINOPHILS % (AUTO) 4.7 % (0.0-6.0); HEMATOCRIT 36 % (33-45); HEMOGLOBIN 11.3 g/dL (11.5-14.8); LYMPHOCYTES # (AUTO) 1.3 K/uL (0.8-4.8); LYMPHOCYTES % (AUTO) 42.8 % (20.0-44.0); MEAN CORPUSCULAR HGB CONC 32 g/dl (31.0-36.0); MEAN CORPUSCULAR VOLUME 96 fL (82-100); MONOCYTES # (AUTO) 0.3 K/uL (0.1-1.30); MONOCYTES % (AUTO) 8.8 % (2.0-12.0); NEUTROPHILS # (AUTO) 1.3 K/uL (1.8-8.9); NEUTROPHILS % (AUTO) 42.8 % (43.0-81.0); PLATELET COUNT (AUTO) 296 K/uL (150-450); WHITE BLOOD COUNT (AUTO) 3.1 K/uL (4.3-11.0)
[2022-06-17 06:53] LABS: ALBUMIN 3.2 g/dL (3.4-5.0); BILIRUBIN,TOTAL 0.3 mg/dL (0.2-1.0); CALCIUM, SERUM 8.4 mg/dL (8.5-10.1); CREATININE 0.7 mg/dL (0.6-1.3)
[2022-06-17 08:00] VITALS: BP 103/53
[2022-06-17] MEDS: PANTOPRAZOLE 40 MG TABLET.DR PO SCH (09:46)
--- NOTE | 2022-06-17 13:18 | NUR ---
COLE Initial Discharge Plan: PT lives at [address] [address]; ([phone]). Pt would want to return back home upon discharge. COLE will contact pt's daughter Meenakshi ([phone]) to gather collatera and discuss treatment and discharge plan. COLE will work with the MD, family, and treatment team to help coordinate appropriate discharge.
--- NOTE | 2022-06-17 13:18 | NUR ---
COLE Clinical Note: Pt placed on a 5150 hold for danger to herself. Pt was hearing voices to kill herself. PT lives at [address] [address]; ([phone]). Pt would want to return back home upon discharge. COLE will contact pt's daughter Meenakshi ([phone]) to gather collateral and discuss treatment and discharge plan. CLOE will work with the MD, family, and treatment team to help coordinate appropriate discharge.
--- NOTE | 2022-06-17 13:19 | NUR ---
Treatment Plan: Pt refused to sign the treatment plan and was suspicious.
[2022-06-17] MEDS: HALOPERIDOL 5 MG TABLET PO SCH ×2 (14:37→16:45)
[2022-06-17] MEDS: DULOXETINE HCL 30 MG CAPSULE.DR PO SCH (14:37)
[2022-06-17] MEDS: BUPROPION XL 150 MG TAB.ER.24 PO SCH (14:38)
--- NOTE | 2022-06-17 15:25 | NUR ---
COLE Family Contact: COLE contacted pt's daughter Meenakshi ([phone]) to gather collateral and discuss treatment plan. SW left a detailed voicemail.
[2022-06-17 16:00] VITALS: BP 125/83
--- NOTE | 2022-06-17 19:05 | NUR ---
RN NOTE PATIENT ON BED RESTING AND A/O X4. ON ROOM AIR TOLERATING WELL. NO SOB NOTED. NOT IN DISTRESS. STAYED IN THE ROOM ALL DAY. STILL APPEARS DEPRESSED BUT IS PLEASANT AND COMPLIANT WITH HER MEDS. SAFETY MEASURES IN PLACED. BED ON LOWEST LOCKED POSITION, SIDE RAILS UP X2. WILL ENDORSE TO NEXT SHIFT FOR FORREST.
[2022-06-17 19:51] VITALS: BP 118/71
[2022-06-17] MEDS: TRAZODONE 50 MG TABLET PO SCH (20:10)
[2022-06-17] MEDS: MAGNESIUM HYDROXIDE 30 ML UDC PO PRN (20:10)
--- NOTE | 2022-06-17 20:11 | NUR ---
Pt c/o constipation. No BM x 2 days. Requested for MOM. MOM 30 ml po prn given as ordered. Will continue to monitor.
[2022-06-17] MEDS: LORAZEPAM 0.5 MG TABLET PO PRN (20:18)
--- NOTE | 2022-06-17 20:18 | NUR ---
Pt c/o anxiety. Least restrictive measures ineffective. Ativan 0.5 mg po prn given as ordered. Will continue to monitor.
--- NOTE | 2022-06-17 21:20 | NUR ---
Post 1 hr Ativan effective. Pt calm and asleep in bed easy to arouse. Frequent visual check done for safety. Will continue to monitor. Will endorse to next shift.
[2022-06-18 08:00] VITALS: BP 100/62
[2022-06-18] MEDS: PANTOPRAZOLE 40 MG TABLET.DR PO SCH (08:17)
[2022-06-18] MEDS: HALOPERIDOL 5 MG TABLET PO SCH ×2 (08:17→17:00)
[2022-06-18] MEDS: BUPROPION XL 150 MG TAB.ER.24 PO SCH (08:17)
[2022-06-18] MEDS: DULOXETINE HCL 30 MG CAPSULE.DR PO SCH (12:42)
--- NOTE | 2022-06-18 14:55 | NUR ---
COLE Family Contact: SW contacted pt's daughter Meenakshi ([phone]) who stated that she would want to speak to Dr. Johnson about pt's medications. She stated that pt has been in and out of hospital because of the voices she has been hearing. She expressed that she would want pt back home when stable.
--- NOTE | 2022-06-18 15:02 | NUR ---
IOP: COLE SPOKE WITH MARÍA RAA ([phone]) FROM [facility] IOP PROGRAM. SHE EXPRESSED THAT SHE WOULD HAVE TO RUN PT'S INSURANCE. COLE FAXED THE PACKET ([phone]).
[2022-06-18 16:00] VITALS: BP 98/56
--- NOTE | 2022-06-18 19:30 | NUR ---
RN NOTE RECEIVED PATIENT RESTING IN BED. PT A/O X4, ABLE TO VERBALIZE NEEDS. ON ROOM AIR TOLERATING WELL. NO RESPIRATORY DISTRESS NOTED. PT APPEARS DEPRESSED, BUT PLEASANT AND COMPLIANT WITH HER MEDS. SAFETY MEASURES IN PLACED. BED IN LOWEST LOCKED POSITION, SIDE RAILS UP X2, CALL LIGHT WITHIN REACH. WILL CONTINUE TO MONITOR FOR SAFETY.
[2022-06-18 19:59] VITALS: BP 98/57
[2022-06-18] MEDS ORDERED: TRAZODONE 50 MG TABLET ONE (21:21)
[2022-06-18] MEDS: TRAZODONE 50 MG TABLET PO SCH (21:24)
[2022-06-18] MEDS: MAGNESIUM HYDROXIDE 30 ML UDC PO PRN (22:37)
--- NOTE | 2022-06-18 22:37 | NUR ---
RN NOTE PT REPORTS THAT SHE FEELS CONSTIPATED. SHE HASN'T HAD A BM FOR 3-4 DAYS ACCORDING TO PT. MOM ADMINISTERED TO PT. PT ALSO STATES THAT SHE FEELS ANXIOUS, RESTLESS. ATIVAN GIVEN TO PT FOR ANXIETY. WILL CONTINUE TO MONITOR.
[2022-06-18] MEDS: LORAZEPAM 0.5 MG TABLET PO PRN (22:38)
--- NOTE | 2022-06-19 07:00 | NUR ---
RN NOTE LEFT PATIENT RESTING IN BED. PT A/O X4, ABLE TO VERBALIZE NEEDS. ON ROOM AIR TOLERATING WELL. NO RESPIRATORY DISTRESS NOTED. PT APPEARS DEPRESSED, BUT PLEASANT AND COMPLIANT WITH HER MEDS. SAFETY MEASURES IN PLACED. BED IN LOWEST LOCKED POSITION, SIDE RAILS UP X2, CALL LIGHT WITHIN REACH. WILL ENDORSE PT TO AM SHIFT NURSE FOR FORREST.
--- NOTE | 2022-06-19 07:40 | NUR ---
RN OPENING NOTE PATIENT AWAKE IN BED RESTING, A/O X 4, COOPERATIVE, COMPLIANT WITH MEDICATIONS. NO S/S OF PAIN NOTED AT THIS TIME. ON ROOM AIR, BREATHING EVEN UNLABORED, NO DISTRESS OR SHORTNESS OF BREATH NOTED. PATIENT DENIES SUICIDE IDEATIONS AND HOMICIDAL IDEATIONS AT THIS TIME. FALL AND SAFETY MEASURES IN PLACE, BED ALARM ON, BED IN LOW AND LOCK POSITION, CALL LIGHT AND TABLE WITHIN EASY REACH, SIDE RAILS UP X2. WILL CONTINUE TO MONITOR Q15 MIN. WITH THE HELP OF STAFF TO MAINTAIN SAFETY.
[2022-06-19 08:00] VITALS: BP 116/65
[2022-06-19] MEDS: HALOPERIDOL 5 MG TABLET PO SCH ×2 (08:59→16:37)
[2022-06-19] MEDS: PANTOPRAZOLE 40 MG TABLET.DR PO SCH (08:59)
[2022-06-19] MEDS: BUPROPION XL 150 MG TAB.ER.24 PO SCH (08:59)
--- NOTE | 2022-06-19 09:32 | NUR ---
IOP: COLE SPOKE WITH MARÍA RAMOS ([phone]) FROM [facility] IOP PROGRAM AND SPOKE WITH JULIAN WHO STATED THAT PT DOES NOT HAVE SECONDARY INSURANCE AND SHE WOULD HAVE TO PAY OUT OF POCKET IT WILL COST HER ABOUT $300 PER DAY OR MORE.
--- NOTE | 2022-06-19 09:37 | NUR ---
SW NOTE: THIS CLOTH TRIMMER HAND OFFERED PT RESOURCES FOR IOP PROGRAM AND STATED MEDICARE COVERS FOR SOME PORTION BUT SHE WOULD HAVE TO PAY OUT OF POCKET PAY. SHE WAS NOT AGREEABLE OF THIS AND STATED THAT SHE IS WORKING.
[2022-06-19] MEDS: DULOXETINE HCL 30 MG CAPSULE.DR PO SCH (13:06)
[2022-06-19 16:00] VITALS: BP 116/75
[2022-06-19 19:46] VITALS: BP 127/77
--- NOTE | 2022-06-19 20:11 | NUR ---
RN NOTES: RECEIVED AWAKE ALERT,RESTING IN HER ROOM A/OX4. NO S/SX OF ACUTE DISTRESS NOTED. PATIENT DEPRESSED, COOPERATIVE TO CARE.MED COMPLIANT, DENIES SI/HI/AVH AT THIS TIME. SAFETY PRECAUTIONS MAINTAINED. WILL CONTINUE TO MONITOR Q15MIN ROUNDS FOR SAFETY AND BEHAVIOR.
[2022-06-19] MEDS: TRAZODONE 50 MG TABLET PO SCH (20:25)
[2022-06-19] MEDS: LORAZEPAM 0.5 MG TABLET PO PRN (21:36)
--- NOTE | 2022-06-19 21:38 | NUR ---
RN NOTES: ANXIETY PT. C/O FEELING ANXIOUS, RESTLESS, PARANOID, ATIVAN 0.5 MG PO GIVEN PER PT. REQUEST, WILL CONTINUE TO MONITOR.
[2022-06-20 08:00] VITALS: BP 102/64
[2022-06-20] MEDS: PANTOPRAZOLE 40 MG TABLET.DR PO SCH (08:41)
[2022-06-20] MEDS: BUPROPION XL 150 MG TAB.ER.24 PO SCH (09:07)
[2022-06-20] MEDS: HALOPERIDOL 5 MG TABLET PO SCH ×2 (09:08→16:28)
--- NOTE | 2022-06-20 11:25 | NUR ---
RN-NOTES PATIENT REQUESTING TYLENOL FOR HER BACK PAIN. TYLENOL 6540MG P.O GIVEN PRN ORDER.
[2022-06-20] MEDS: DULOXETINE HCL 30 MG CAPSULE.DR PO SCH (12:24)
--- NOTE | 2022-06-20 12:41 | NUR ---
COLE Coordination of Care: Patient referred for intake evaluation (psychiatry) at [facility] located at [address] [place], [place] [address]; ([phone]) on June 25 at 9AM.
[2022-06-20 16:00] VITALS: BP 110/72
--- NOTE | 2022-06-20 16:14 | NUR ---
RN-NOTES RECEIVED T.O ORDER FROM DR. HERNANDEZ OF IBUPROFEN 600MG P.O BID PRN. NOTED AND CARRIED OUT.
[2022-06-20] MEDS: IBUPROFEN 600 MG TABLET PO PRN (16:28)
--- NOTE | 2022-06-20 16:29 | NUR ---
RN- NOTES MOTRIN 600MG GIVEN DUE TO LOWER BACK AND LOWER ABDOMINAL SORENESS, PAIN 08/07.
--- NOTE | 2022-06-20 18:36 | NUR ---
RN- CLOSING NOTES PATIENT IS AWAKE IN BED, BREATHING EVEN AND NON LABORED WITH NO S/S OF DISTRESS. PATIENT IS GUARDED AND ISOLATIVE. PATIENT IS MEDICATION COMPLIANT. ENCOURAGED PATIENT TO LEAVE ROOM AND SOCIALIZE WITH THE STAFF AND OTHER RESIDENTS, BUT PATIENT PREFERS TO STAY IN THE ROOM. PATIENT COMPLAINS OF LOWER BACK AND LOWER ABDOMINAL SORENESS, IBUPROFEN ADMINISTERED. DENIES SI/HI AT THIS TIME. WILL CONTINUE TO MONITOR Q 15 MINUTES FOR SAFETY AND BEHAVIOR.
--- NOTE | 2022-06-20 19:30 | NUR ---
RN OPENING NOTE RECEIVED PATIENT FROM AM NURSE; PATIENT IS A/O X 3-4, ABLE TO MAKE NEEDS KNOWN, WITH VISITORS AT BEDSIDE; STABLE ON ROOM AIR; DENIES ANY PAIN, DISCOMFORT AND HALLUCINATIONS AT THIS TIME; SAFETY MEASURES IMPLEMENTED, WILL CONTINUE TO MONITOR THROUGHOUT SHIFT
--- NOTE | 2022-06-20 19:30 | NUR ---
GPS RN NOTE, RECEIVED PATIENT AWAKE AND IN BED, NO S/S OR COMPLAINTS OF PAIN AT THIS TIME. PATIENT IS DISPLAYING NO S/S OF APPARENT DISTRESS AT THIS TIME. PATIENT BREATHING IS UNLABORED WITH EQUAL RISE AND FALL OF THE CHEST. PATIENT IS ALERT AND ORIENTED X 3 ON ROOM AIR WITH A SPO2 99%. PATIENT IS COMPLIANT WITH MEDICATIONS, ANXIOUS, PARANOID AT TIMES, DEMANDING, ARGUMENTATIVE, LABILE, AND COOPERATIVE. PATIENT DENIES SUICIDAL AND HOMICIDAL IDEATIONS AT THIS TIME. PATIENT ASSISTED WITH TURNING AND REPOSITIONING Q2HR AND PRN FOR COMFORT AND CIRCULATION. PATIENT HAS NO NEEDS AT THIS TIME. PATIENT EDUCATED ON THE USE OF THE CALL CORRAL. PATIENT BED SIDE RAILS UP X 2 FOR SAFETY. PATIENT BED IS LOCKED AND LOW. WILL CONTINUE TO MONITOR THIS PATIENT Q15 MINUTES WITH THE HELP OF STAFF TO MAINTAIN SAFETY.
[2022-06-20 20:00] VITALS: BP 120/67
[2022-06-20] MEDS ORDERED: TRAZODONE 50 MG TABLET PO SCH (21:00)
[2022-06-20] MEDS: LORAZEPAM 0.5 MG TABLET PO PRN (23:50)
--- NOTE | 2022-06-20 23:54 | NUR ---
GPS RN NOTE, PATIENT HAS A COMPLAINT OF FEELING ANXIOUS AND IS REQUESTING ATIVAN AT THIS TIME. PATIENT VITAL SIGNS ARE STABLE. GAVE ATIVAN 0.5MG PO Q6HR PRN ORDERED. WILL REASSESS FOR ANXIETY AND I WILL CONTINUE TO MONITOR THIS PATIENT WITH THE HELP OF STAFF.
[2022-06-21 08:00] VITALS: BP 90/60
[2022-06-21] MEDS: BUPROPION XL 150 MG TAB.ER.24 PO SCH (08:47)
[2022-06-21] MEDS: PANTOPRAZOLE 40 MG TABLET.DR PO SCH (08:47)
[2022-06-21] MEDS: HALOPERIDOL 5 MG TABLET PO SCH ×2 (08:47→16:52)
--- NOTE | 2022-06-21 09:19 | NUR ---
Court Notification: COLE contacted pt's daughter Meenakshi ([phone]) and notified of 5970 hearing today.
[2022-06-21] MEDS: IBUPROFEN 600 MG TABLET PO PRN ×2 (10:46→17:37)
--- NOTE | 2022-06-21 10:47 | NUR ---
RN-NOTES PATIENT REQUESTING MOTRIN FOR HER BACK PAIN.MOTRIN 600MG P.O GIVEN PRN ORDER.
[2022-06-21] MEDS: DULOXETINE HCL 30 MG CAPSULE.DR PO SCH (13:11)
--- NOTE | 2022-06-21 15:56 | NUR ---
Court Hearing: Patient's court hearing for 0730 hearing was today and it was upheld for GD.
[2022-06-21 16:00] VITALS: BP 92/64
--- NOTE | 2022-06-21 16:04 | NUR ---
COLE Family Contact: COLE contacted pt's daughter Meenakshi ([phone]) and left a detailed voicemail that her 5250 was upheld. SW indiciated doctor is possibly deciding on discharging Saturday 06/24, depending on her behavior on the weekend. COLE spoke with patient's son ([phone]) and repeatedly explained 5150/5250 process and explaining patient's current behavior and he seemed to not understand and was fixated on discharge. COLE had to explain multiple times.
--- NOTE | 2022-06-21 18:24 | NUR ---
RN-NOTES PATIENT VISIBLE IN THE UNIT ,A/O X3 , NO ACUTE DISTRESS NOTED. COMPLIANT WITH MEDICATIONS.PATIENT ABLE TO VERBALIZED FEELINGS AND CONCERN TO THE STAFF. ALL NEEDS ATTENDED AND ANTICIPATED WILL CONT. MONITORING FOR SAFETY AND BEHAVIOR.WILL ENDORSE TO INCOMING NURSE FOR THE CONTINUITY OF CARE.
[2022-06-21] MEDS: LORAZEPAM 0.5 MG TABLET PO PRN (20:00)
--- NOTE | 2022-06-21 20:00 | NUR ---
RN NOTES: ANXIETY PT. C/O FEELING ANXIOUS, RESTLESS, PARANOID, ATIVAN 0.5 MG PO GIVEN PER PT. REQUEST, WILL CONTINUE TO MONITOR.
[2022-06-21 20:30] VITALS: BP 105/65
[2022-06-21] MEDS: TRAZODONE 50 MG TABLET PO SCH (21:00)
--- NOTE | 2022-06-22 06:30 | NUR ---
RN NOTES: RESTING IN ROOM AND 8 HOURS OF SLEEP , A/OX4 , ABLE TO MAKE NEEDS KNOWN. NO S/S OF ACUTE DISTRESS NOTED. PATIENT REMAINS EASILY,AGITATED, DEPRESSED, BUT MED COMPLIANT. ALL NEEDS ATTENDED AND ANTICIPATED DENIES SI/HI AT THIS TIME. SAFETY PRECAUTIONS MAINTAINED. WILL CONTINUITY WITH CARE .
[2022-06-22 08:00] VITALS: BP 104/61
[2022-06-22] MEDS: HALOPERIDOL 5 MG TABLET PO SCH ×2 (08:07→16:33)
[2022-06-22] MEDS: PANTOPRAZOLE 40 MG TABLET.DR PO SCH (08:07)
[2022-06-22] MEDS: BUPROPION XL 150 MG TAB.ER.24 PO SCH (08:07)
[2022-06-22] MEDS: DULOXETINE HCL 30 MG CAPSULE.DR PO SCH (13:29)
[2022-06-22 16:00] VITALS: BP 106/61
--- NOTE | 2022-06-22 18:16 | NUR ---
RN-NOTES PATIENT VISIBLE IN THE UNIT ,A/O X3 , NO ACUTE DISTRESS NOTED. CALM AND COOPERATIVE WITH STAFF.COMPLIANT WITH MEDICATIONS.PATIENT ABLE TO VERBALIZED FEELINGS AND CONCERN TO THE STAFF. ALL NEEDS ATTENDED AND ANTICIPATED WILL CONT. MONITORING FOR SAFETY AND BEHAVIOR.WILL ENDORSE TO INCOMING NURSE FOR THE CONTINUITY OF CARE.
--- NOTE | 2022-06-22 19:37 | NUR ---
RN NOTES: RECEIVED AWAKE ALERT, PT. PLAYING CARDS WITH FAMILY MEMBER IN ACTIVITY ROOM, A/OX4. NO S/SX OF ACUTE DISTRESS NOTED. PATIENT MOOD IS PLEASANT AND TALKING WITH FAMILY MEMEBER , COOPERATIVE TO CARE.MED COMPLIANT, DENIES SI/HI/AVH AT THIS TIME. SAFETY PRECAUTIONS MAINTAINED. WILL CONTINUE TO MONITOR Q15MIN ROUNDS FOR SAFETY AND BEHAVIOR.
[2022-06-22] MEDS: LORAZEPAM 0.5 MG TABLET PO PRN (20:09)
--- NOTE | 2022-06-22 20:10 | NUR ---
RN NOTES: ANXIETY PT. C/O FEELING ANXIOUS, RESTLESS, PARANOID, ATIVAN 0.5 MG PO GIVEN PER PT. REQUEST, WILL CONTINUE TO MONITOR.
[2022-06-22] MEDS: TRAZODONE 50 MG TABLET PO SCH (21:38)
[2022-06-23 08:00] VITALS: BP 115/71
[2022-06-23] MEDS: PANTOPRAZOLE 40 MG TABLET.DR PO SCH (08:09)
[2022-06-23] MEDS: HALOPERIDOL 5 MG TABLET PO SCH ×2 (08:40→17:18)
[2022-06-23] MEDS: BUPROPION XL 150 MG TAB.ER.24 PO SCH (08:41)
[2022-06-23] MEDS: DULOXETINE HCL 30 MG CAPSULE.DR PO SCH (12:15)
[2022-06-23 16:00] VITALS: BP 98/61
--- NOTE | 2022-06-23 18:51 | NUR ---
RN NOTES: PATIENT IS CALM AND COOPERATIVE WITHIN THE SHIFT, NO EPISODE OF RESTLESSNESS/AGITATION NOTED. ABLE TO MAKE NEEDS KNOWN. ABLE TO SOCIALIZE WITH OTHER PATIENTS. VISITED BY RELATIVES TODAY. WILL ENDORSE FORREST TO [employer] DRIVER.
[2022-06-23 20:01] VITALS: BP 117/79
[2022-06-23] MEDS: LORAZEPAM 0.5 MG TABLET PO PRN (20:38)
--- NOTE | 2022-06-23 20:40 | NUR ---
RN note: Patient is awake,alert,ox 4,c/o feeling anxious,requested and given Ativan 0.5 mg PO as ordered.
[2022-06-23] MEDS ORDERED: TRAZODONE 50 MG TABLET PO SCH (21:00)
[2022-06-24] MEDS: PANTOPRAZOLE 40 MG TABLET.DR PO SCH (07:30)
[2022-06-24 08:00] VITALS: BP 105/73
--- NOTE | 2022-06-24 08:48 | NUR ---
SW Discharge Note: Patient will discharged back home located at [address] [address]; ([phone]). Patients daughter Meenakshi ([phone]) will hot die picker pt at 12PM. Pt is alert and oriented x3. Pt happy to be going to the facility. Pt denies suicidal or homicidal ideation. Pt denies visual/auditory hallucinations. Pt will follow up with (Director Of Corporate Sales) Dr. Medeiros located at [facility] [place] [address]; . Patient referred for intake evaluation (psychiatry) at [facility] located at [address] [place] [id number]; ([phone]) on June 25 at 9AM. Pt presents with euthymic mood and congruent affect.
[2022-06-24] MEDS: HALOPERIDOL 5 MG TABLET PO SCH (09:09)
[2022-06-24] MEDS: BUPROPION XL 150 MG TAB.ER.24 PO SCH (09:09)
--- NOTE | 2022-06-24 10:34 | NUR ---
RN-CO: DR Johnson gave an order to discontinue hold and discharge the patient noted and carried out.
--- NOTE | 2022-06-24 12:30 | NUR ---
Patient discharged to home in stable condition.Compliant with medications ,cooperative with treatment plans Patient denies SI/HI/AVH Behavior improved , VS stable ,psychiatric tx plans met ,medical tx plans differed for for continual monitoring .Educated pt about after care plan (Exit -care)and copy provided .Returned personal belongings to patient med list and prescription given and explained to patient able to verbalize understanding .Vs stable no c/o pain .Patient seen by and with discharge orders .Patient discharge at 1230 with her daughter .
== END 2022-06-24 12:30 | disposition home or self-care (01) | DRG 885 ==
LOC: GPS 20:12
PROVIDERS: ADMIT Psychiatry & Neurology Psychosomatic Medicine; ATTEND Nurse Practitioner Family
DX: F33.3 Major depressive disorder, recurrent, severe with psychotic symptoms (principal); R44.0 Auditory hallucinations; C91.01 Acute lymphoblastic leukemia, in remission; R45.851 Suicidal ideations; F43.10 Post-traumatic stress disorder, unspecified; G43.909 Migraine, unspecified, not intractable, without status migrainosus; K58.9 Irritable bowel syndrome, unspecified; R73.03 Prediabetes; Z87.19 Personal history of other diseases of the digestive system
CPT/HCPCS: 36415; 80053-TC; 80061-TC; 82962-TC; 83735-TC; 85025-TC; 87081-TC

== ENCOUNTER 2022-07-17 11:30 | Inpatient (IN) | payer MEDICARE ==
[~2022-07-17] VITALS: Ht 165.1 cm; Wt 65.3 kg
--- NOTE | 2022-07-17 11:40 | NUR ---
The patient is bibson, hearing voices "i want to kill myself using the fork". Denies patient denies HI. In room air and denies SOB. Respiration regular and unlabored. Denies pain. Safety measures taken. Will continue to monitor the patient.
--- NOTE | 2022-07-17 11:44 | NUR ---
urine collected and sent to lab.
--- NOTE | 2022-07-17 11:50 | NUR ---
Sales Representative [employer] at the bedside
[2022-07-17 11:58] LABS: BASOPHILS % (AUTO) 1.1 % (0.0-2.0); EOSINOPHILS % (AUTO) 2.1 % (0.0-6.0); HEMATOCRIT 38 % (33-45); HEMOGLOBIN 12.2 g/dL (11.5-14.8); LYMPHOCYTES # (AUTO) 1.1 K/uL (0.8-4.8); LYMPHOCYTES % (AUTO) 31.1 % (20.0-44.0); MEAN CORPUSCULAR HGB CONC 32 g/dl (31.0-36.0); MEAN CORPUSCULAR VOLUME 95 fL (82-100); MONOCYTES # (AUTO) 0.3 K/uL (0.1-1.30); MONOCYTES % (AUTO) 8.1 % (2.0-12.0); NEUTROPHILS # (AUTO) 2.1 K/uL (1.8-8.9); NEUTROPHILS % (AUTO) 57.6 % (43.0-81.0); PLATELET COUNT (AUTO) 289 K/uL (150-450); RED BLOOD CELL COUNT(AUTO) 3.99 MIL/uL (4.0-5.2); WHITE BLOOD COUNT (AUTO) 3.6 K/uL (4.3-11.0)
--- NOTE | 2022-07-17 12:01 | NUR ---
covid antigen swab done and sent to the lab
[2022-07-17 12:15] LABS: BILIRUBIN,URINE Negative (NEGATIVE); COLOR,URINE YELLOW (YELLOW); LEUKOCYTE ESTERASE ,URINE Negative (NEGATIVE); NITRITE, URINE Negative (NEGATIVE); PROTEIN,URINE Negative (NEGATIVE); UGLUCOSE Negative (NEGATIVE); UROBILINOGEN,URINE 0.2 EU/dL (0.2)
[2022-07-17] MEDS ORDERED: HALOPERIDOL LACTATE INJ 5 MG/ML VIAL ONE (12:24)
[2022-07-17 12:25] LABS: ALANINE AMINOTRANSFERASE 22 U/L (12-78); ALBUMIN 3.7 g/dL (3.4-5.0); ALKALINE PHOSPHATASE 81 U/L (46-116); ASPARTATE AMINOTRANSFERASE 19 U/L (15-37); BILIRUBIN,DIRECT 0.1 mg/dL (0.0-0.2); BILIRUBIN,TOTAL 0.4 mg/dL (0.2-1.0); CALCIUM, SERUM 8.9 mg/dL (8.5-10.1); CARBON DIOXIDE 27 mmol/L (21-32); CHLORIDE 106 mmol/L (98-107); CREATININE 0.8 mg/dL (0.6-1.3); GLUCOSE 103 mg/dL (74-106); POTASSIUM 4.1 mmol/L (3.5-5.1); SODIUM SERUM 137 mmol/L (136-145); TOTAL PROTEIN, SERUM 6.9 g/dL (6.4-8.2); UREA NITROGEN, BLOOD 12 mg/dL (7-18)
[2022-07-17 12:29] LABS: ACETAMINOPHEN 0 ug/ml (10-30); ALCOHOL, BLOOD < 3 mg/dL (0-0)
[2022-07-17] MEDS ORDERED: HALOPERIDOL LACTATE INJ 5 MG/ML VIAL IM ONE (12:30)
[2022-07-17] MEDS ORDERED: LORAZEPAM INJ 2 MG/ML VIAL ONE (13:17)
[2022-07-17] MEDS ORDERED: LORAZEPAM INJ 2 MG/ML VIAL IM ONE (13:30)
--- NOTE | 2022-07-17 13:39 | NUR ---
THE PATIENT IS HAVING LUNCH. TOLERATES PROVIDED MEAL WELL.
--- NOTE | 2022-07-17 14:07 | NUR ---
MOVE SHEET SUBMITTED.
--- NOTE | 2022-07-17 15:49 | NUR ---
PSYCH CLINICIAN DANIELLE AT THE BEDSIDE
--- NOTE | 2022-07-17 17:55 | NUR ---
GOT BED 219-A ADMITTING INFORMED.
--- NOTE | 2022-07-17 17:58 | NUR ---
REPORT GIVEN TO NURSE MANA FOR FORREST
--- NOTE | 2022-07-17 18:39 | NUR ---
THE PATIENT IS TRANSFERED TO ROOM 219-A IN STABLE CONDITION AND PER POLICY.
[2022-07-17] MEDS ORDERED: MAG HYDROX/AL HYDROX/SIMETH 30 ML UDC PO PRN (19:00)
[2022-07-17] MEDS ORDERED: MAGNESIUM HYDROXIDE 30 ML UDC PO PRN (19:00)
[2022-07-17] MEDS ORDERED: TEMAZEPAM 7.5 MG CAPSULE PO PRN (19:00)
[2022-07-17] MEDS ORDERED: LORAZEPAM 0.5 MG TABLET PO PRN (19:00)
--- NOTE | 2022-07-17 19:05 | NUR ---
SHALLOT CLEANER NOTE: ADMITTED A 61-Y/O, FEMALE, PT CAME FROM [facility] INITIALLY FROM HOME. ADMITTED ON A 5150 HOLD FOR GD. PER HOLD, PT. WAS SHAKING IN BED SHE REPORTS THAT THE VOICES IN HER HEAD TELLING HER TO HURT HERSELF ARE GETTING LOUDER AND SHE CANNOT TAKE IT ANYMORE. UPON FACE TO FACE EVALUATION, PATIENT IS ALERT AND ORIENTED X3, APPEARS TO BE DEPRESSED, ANXIOUS AND GUARDED. VERBALIZATION PT STILL HEARING VOICES TELLING HER "TO KILL HERSELF WITH A FORK". PT. REFUSED SKIN ASSESSMENT. ALL BELONGINGS WERE CHECKED FOR CONTRABAND. PATIENT'S RIGHTS WERE DISCUSSED AND BOOKLET WAS GIVEN. CONTACTED DR. BRIDGES AND HOSPITALIST CAROLINE MORLEY AND INFORMED THEM OF THE ADMISSION. BED IN LOW AND LOCKED POSITION. SAFETY PRECAUTIONS MAINTAINED. WILL CONTINUE TO MONITOR Q15 MINS FOR MOOD, SAFETY AND BEHAVIOR. LEFT VOICE MESSAGE TO PT'S DAUGHTER REGARDING PT'S. ADMISSION.
[2022-07-17 20:00] VITALS: BP 123/70
[2022-07-17 20:31] VITALS: BP 123/70
[2022-07-18 07:56] LABS: ALBUMIN 3.1 g/dL (3.4-5.0); BILIRUBIN,TOTAL 0.4 mg/dL (0.2-1.0); CALCIUM, SERUM 8.8 mg/dL (8.5-10.1); CREATININE 0.6 mg/dL (0.6-1.3); POTASSIUM 3.9 mmol/L (3.5-5.1)
[2022-07-18 08:00] VITALS: BP 136/71
[2022-07-18] MEDS: PANTOPRAZOLE 40 MG TABLET.DR PO SCH (08:35)
[2022-07-18] MEDS ORDERED: ARIP5TAB10 PO (10:10)
[2022-07-18] MEDS: BUPROPION XL 150 MG TAB.ER.24 PO SCH (11:46)
[2022-07-18] MEDS: ARIPIPRAZOLE 5 MG TABLET PO SCH ×2 (11:47→16:21)
--- NOTE | 2022-07-18 15:39 | NUR ---
COLE Clinical Note: Pt placed on a 5150 hold for GD. Per hold, pt was hearing voices at home and the voices were telling her to hurt herself. Pt lives at [address] [place] [address]; ([phone]). Pt would want to return back home when stable. COLE will contact pt's daughter Meenakshi ([phone]) to discuss treatment/discharge plan.
--- NOTE | 2022-07-18 15:39 | NUR ---
COLE Family Contact: SW contacted pt's daughter Meenakshi ([phone]) and left a detailed voicemail of treatment plan and discharge plan.
--- NOTE | 2022-07-18 15:39 | NUR ---
COLE Initial Discharge Plan: Pt lives at [address] [address]; ([phone]). Pt would want to return back home when stable. COLE will contact pt's daughter Meenakshi ([phone]) to discuss treatment/discharge plan. COLE will work with the MD, family, and treatment team.
[2022-07-18 16:00] VITALS: BP 99/62
[2022-07-18] MEDS: CARBAMAZEPINE 200 MG TABLET PO SCH (16:21)
--- NOTE | 2022-07-18 18:52 | NUR ---
RN NOTES PT RESTING IN BED, CALM AND COOPERATIVE BUT ISOLATED.PREFERS TO STAY INSIDE HER ROOM. MED COMPLIANT. ALL NEEDS MET. NOT IN ANY DISTRESS. WILL ENDORSE TO NEXT SHIFT FOR FORREST.
[2022-07-18] MEDS: clonazePAM 0.5 MG TABLET PO PRN (19:49)
--- NOTE | 2022-07-18 19:51 | NUR ---
RN NOTES: ANXIETY PT. C/O FEELING ANXIOUS, RESTLESS, PRN KLONOPIN 0.5 MG PO GIVEN PER PT. REQUEST, WILL CONTINUE TO MONITOR.
[2022-07-18 20:00] VITALS: BP 117/78
--- NOTE | 2022-07-18 20:41 | NUR ---
RN NOTES: RECEIVED PATIENT RESTING IN HER ROOM, A/OX3. NO S/SX OF ACUTE DISTRESS NOTED. PATIENT IS , DEPRESSED ,EASILY AGITATED ,PARANOID , COOPERTIVE, NEEDY,GUARDED REDIRECTABLE,MED COMPLIANT ,ENCOURAGED TO VERBALIZED ANY FEELING OR CONCERN ,SAFETY PRECAUTIONS MAINTAINED. WILL CONTINUE TO MONITOR Q15MIN ROUNDS FOR SAFETY.
[2022-07-18] MEDS: TRAZODONE 50 MG TABLET PO SCH (21:03)
[2022-07-19 08:00] VITALS: BP 105/55
[2022-07-19] MEDS: BUPROPION XL 150 MG TAB.ER.24 PO SCH (08:28)
[2022-07-19] MEDS: ARIPIPRAZOLE 5 MG TABLET PO SCH ×2 (08:28→16:07)
[2022-07-19] MEDS: PANTOPRAZOLE 40 MG TABLET.DR PO SCH (08:28)
[2022-07-19] MEDS: CARBAMAZEPINE 200 MG TABLET PO SCH ×2 (09:49→16:07)
[2022-07-19 16:00] VITALS: BP 116/67
[2022-07-19] MEDS: clonazePAM 0.5 MG TABLET PO PRN (16:07)
[2022-07-19 20:00] VITALS: BP 114/60
[2022-07-19 20:28] LABS: THYROID STIMULATING HORMONE 1.143 uIU/mL (0.358-3.74)
[2022-07-19] MEDS: TRAZODONE 50 MG TABLET PO SCH (21:16)
[2022-07-20 08:00] VITALS: BP 106/66
--- NOTE | 2022-07-20 08:00 | NUR ---
GPS/RN At about 0750 pt. in room 219A reported that her roommate fell in the floor. Upon arrival in the room pt. was found sitting the floor and said she fell and hit her head, left elbow and left knee. Per pt. she fell because the floor is wet and she will go to the bath room. Pt. able to get up with staff assistance and assisted back to her bed. Staffs checked the floor and it was not wet, pt. is dry and clean. Skin assessment done and redness noted on the elbow and left knee. V/S taken BP 112/84 P82 R18 O2 98%. Addendum: 07/20/22 at 1604 by JAZMYN RICKETTS RN surgical supervisor, Steam Table Attendant and families were notified Addendum: 07/20/22 at 1609 by JAZMYN RICKETTS RN Per pt. she hit her head, right elbow and right knee not the left.
[2022-07-20] MEDS: BUPROPION XL 150 MG TAB.ER.24 PO SCH (08:05)
[2022-07-20] MEDS: CARBAMAZEPINE 200 MG TABLET PO SCH ×2 (08:05→17:33)
[2022-07-20] MEDS: ARIPIPRAZOLE 5 MG TABLET PO SCH ×2 (08:05→17:33)
[2022-07-20] MEDS: PANTOPRAZOLE 40 MG TABLET.DR PO SCH (08:05)
[2022-07-20] MEDS: clonazePAM 0.5 MG TABLET PO PRN ×2 (09:55→16:02)
--- NOTE | 2022-07-20 10:00 | NUR ---
GPS/RN pt is pacing , appeared anxious. Klonopin PO given as ordered for anxiety
--- NOTE | 2022-07-20 10:57 | NUR ---
Juan wanted to visit early and Dr. Johnson allowed to visit for 15 minutes.
[2022-07-20] MEDS ORDERED: ARIPIPRAZOLE 5 MG TABLET PO ONE (15:30)
[2022-07-20 16:00] VITALS: BP 136/86
--- NOTE | 2022-07-20 20:22 | NUR ---
RN NOTES: RECEIVED PATIENT RESTING IN HER ROOM, A/OX 3. NO S/SX OF ACUTE DISTRESS NOTED. PATIENT IS , DEPRESSED ,EASILY AGITATED ,PARANOID ,DISORGNIZED COOPERTIVE, NEEDY,GUARDED REDIRECTABLE,MED COMPLIANT ,ENCOURAGED TO VERBALIZED ANY FEELING OR CONCERN ,SAFETY PRECAUTIONS MAINTAINED. WILL CONTINUE TO MONITOR Q15MIN ROUNDS FOR SAFETY.
[2022-07-20] MEDS: ACETAMINOPHEN 325 MG TABLET PO PRN (20:34)
--- NOTE | 2022-07-20 20:34 | NUR ---
RN NOTES: PT. C/O GENERALIZED BODY PAIN PRN TYLENOL 650 MG PO GIVEN PER PT. REQUEST , WILL CONTINUE TO MONITOR.
[2022-07-20 20:36] VITALS: BP 123/78
[2022-07-20] MEDS: TRAZODONE 50 MG TABLET PO SCH (21:15)
[2022-07-21 08:00] VITALS: BP 113/68
[2022-07-21] MEDS: PANTOPRAZOLE 40 MG TABLET.DR PO SCH (08:21)
[2022-07-21] MEDS: BUPROPION XL 150 MG TAB.ER.24 PO SCH (08:21)
[2022-07-21] MEDS: ARIPIPRAZOLE 5 MG TABLET PO SCH (08:21)
[2022-07-21] MEDS: CARBAMAZEPINE 200 MG TABLET PO SCH ×2 (08:21→16:29)
--- NOTE | 2022-07-21 10:30 | NUR ---
GPS/TN PT OFFERED WALKER TO USE FOR SAFETY. PT ACCEPTED THE OFFER AND AMBULATES WITH WALKER AT THIS TIME.
[2022-07-21] MEDS ORDERED: HALOPERIDOL 5 MG TABLET PO PRN (12:00)
[2022-07-21] MEDS: clonazePAM 0.5 MG TABLET PO PRN (12:05)
[2022-07-21] MEDS: HALOPERIDOL 5 MG TABLET PO SCH ×2 (12:06→20:33)
[2022-07-21 16:00] VITALS: BP 121/55
[2022-07-21] MEDS: ACETAMINOPHEN 325 MG TABLET PO PRN (20:32)
--- NOTE | 2022-07-21 20:37 | NUR ---
Pt c/o headache 06/07. Tylenol 650 mg po prn given as ordered. Will continue to monitor.
[2022-07-21 20:56] VITALS: BP 123/75
[2022-07-21] MEDS: TRAZODONE 50 MG TABLET PO SCH (21:20)
[2022-07-22 08:00] VITALS: BP 141/95
[2022-07-22] MEDS: PANTOPRAZOLE 40 MG TABLET.DR PO SCH (08:20)
[2022-07-22] MEDS: HALOPERIDOL 5 MG TABLET PO SCH (08:29)
[2022-07-22] MEDS: BUPROPION XL 150 MG TAB.ER.24 PO SCH (08:29)
[2022-07-22] MEDS: CARBAMAZEPINE 200 MG TABLET PO SCH ×2 (09:04→16:37)
[2022-07-22] MEDS ORDERED: HALOPERIDOL 5 MG TABLET PO PRN (11:00)
[2022-07-22 16:00] VITALS: BP 124/78
[2022-07-22 20:32] VITALS: BP 135/82
[2022-07-22] MEDS: TRAZODONE 50 MG TABLET PO SCH (21:01)
[2022-07-23] MEDS: PANTOPRAZOLE 40 MG TABLET.DR PO SCH (07:39)
[2022-07-23 08:00] VITALS: BP 111/66
[2022-07-23] MEDS: CARBAMAZEPINE 200 MG TABLET PO SCH ×3 (09:00→17:00)
[2022-07-23] MEDS: BUPROPION XL 150 MG TAB.ER.24 PO SCH (09:19)
[2022-07-23 16:00] VITALS: BP 98/65
[2022-07-23 20:17] VITALS: BP 108/58
[2022-07-23] MEDS: TRAZODONE 50 MG TABLET PO SCH (21:00)
[2022-07-24] MEDS: PANTOPRAZOLE 40 MG TABLET.DR PO SCH (07:50)
[2022-07-24 08:00] VITALS: BP 102/70
[2022-07-24] MEDS: BUPROPION XL 150 MG TAB.ER.24 PO SCH (08:52)
[2022-07-24] MEDS: CARBAMAZEPINE 200 MG TABLET PO SCH (08:52)
[2022-07-24] MEDS: LamoTRIgine 25 MG TABLET PO SCH ×2 (11:05→21:01)
--- NOTE | 2022-07-24 14:21 | NUR ---
PT IS IRRITABLE, INTRUSIVE, YELLED AT STAFF. PT WAS REDIRECTED BY BEAUTICIAN APPRENTICE. PT WILL BE MONITORED FOR CHANGES IN BEHAVIOR AND SAFETY.
[2022-07-24 16:00] VITALS: BP 116/75
[2022-07-24] MEDS: ACETAMINOPHEN 325 MG TABLET PO PRN ×2 (17:48→23:24)
[2022-07-24 20:21] VITALS: BP 101/65
[2022-07-24] MEDS: TRAZODONE 50 MG TABLET PO SCH (21:01)
--- NOTE | 2022-07-24 23:25 | NUR ---
RN Notes Administered tylenol for stomach pain per PT request.
--- NOTE | 2022-07-25 04:55 | NUR ---
RN Notes Patient stated she cannot sleep during the night and wants ativan. Contacted Dr. Swann who ordered one time dose of ativan 1 mg PO.
[2022-07-25] MEDS ORDERED: LORAZEPAM 1 MG TABLET PO ONE (05:00)
--- NOTE | 2022-07-25 05:05 | NUR ---
RN Notes Administered ativan one time dose 1 mg PO per PT request.
[2022-07-25 08:00] VITALS: BP 95/54
[2022-07-25] MEDS: PANTOPRAZOLE 40 MG TABLET.DR PO SCH (08:11)
[2022-07-25] MEDS: LamoTRIgine 25 MG TABLET PO SCH ×2 (08:16→20:28)
[2022-07-25] MEDS: BUPROPION XL 150 MG TAB.ER.24 PO SCH (08:16)
[2022-07-25 16:00] VITALS: BP 110/71
--- NOTE | 2022-07-25 17:54 | NUR ---
RN-NOTES PATIENT IS VISIBLE IN THE UNIT,GUARDED A/OX3 NOTED WITH DEPRESSED MOOD BUT DENIES SI/HI .ENCOURAGED TO VERBALIZE FEELINGS AND CONCERN TO THE STAFF AND ATTEND GROUPS. PATIENT VERBALIZED UNDERSTANDING COMPLIANT WITH MEDICATIONS.AMBULATORY STEADY GAIT. ALL NEEDS ATTENDED AND ANTICIPATED. WILL CONT. MONITORING FOR SAFETY AND BEHAVIOR.WILL ENDORSE TO INCOMING NURSE FOR THE CONTINUITY OF CARE.
[2022-07-25 20:00] VITALS: BP 114/75
[2022-07-25] MEDS ORDERED: [UNRECOGNIZED DRUG - OTHER] PO (20:51)
[2022-07-25] MEDS: TRAZODONE 50 MG TABLET PO SCH (21:30)
[2022-07-26 08:00] VITALS: BP 99/60
[2022-07-26] MEDS: PANTOPRAZOLE 40 MG TABLET.DR PO SCH (08:15)
[2022-07-26] MEDS: LamoTRIgine 25 MG TABLET PO SCH ×2 (08:18→20:21)
[2022-07-26] MEDS: BUPROPION XL 150 MG TAB.ER.24 PO SCH (08:18)
[2022-07-26 16:00] VITALS: BP 100/68
--- NOTE | 2022-07-26 18:19 | NUR ---
RN-NOTES PATIENT IS VISIBLE IN THE UNIT, A/OX3 DENIES SI/HI .ENCOURAGED TO VERBALIZE FEELINGS AND CONCERN TO THE STAFF AND ATTEND GROUPS. PATIENT VERBALIZED UNDERSTANDING COMPLIANT WITH MEDICATIONS.AMBULATORY STEADY GAIT. ALL NEEDS ATTENDED AND ANTICIPATED. WILL CONT. MONITORING FOR SAFETY AND BEHAVIOR.WILL ENDORSE TO INCOMING NURSE FOR THE CONTINUITY OF CARE.
--- NOTE | 2022-07-26 20:57 | NUR ---
RN NOTES: RECEIVED PATIENT RESTING IN HER ROOM, A/OX 3. NO S/SX OF ACUTE DISTRESS NOTED. PATIENT IS , DEPRESSED ,EASILY AGITATED ,PARANOID ,DISORGNIZED COOPERTIVE, NEEDY,GUARDED REDIRECTABLE,MED COMPLIANT , FAMILY MEMEBER VISITED, ENCOURAGED TO VERBALIZED ANY FEELING OR CONCERN ,SAFETY PRECAUTIONS MAINTAINED. WILL CONTINUE TO MONITOR Q15MIN ROUNDS FOR SAFETY.
[2022-07-26 21:05] VITALS: BP 108/63
[2022-07-26] MEDS: TRAZODONE 50 MG TABLET PO SCH (21:13)
[2022-07-26] MEDS: MELATONIN 3 MG PO SCH (22:06)
[2022-07-27] MEDS: PANTOPRAZOLE 40 MG TABLET.DR PO SCH (07:44)
[2022-07-27 08:00] VITALS: BP 99/59
[2022-07-27] MEDS: LamoTRIgine 25 MG TABLET PO SCH ×2 (08:10→20:11)
[2022-07-27] MEDS: BUPROPION XL 150 MG TAB.ER.24 PO SCH (08:10)
[2022-07-27] MEDS: ACETAMINOPHEN 325 MG TABLET PO PRN (09:21)
--- NOTE | 2022-07-27 09:21 | NUR ---
RN-NOTES PATIENT REQUESTING TYLENOL FOR HEADACHE.TYLENOL 650MG P.O GIVEN PRN ORDER.
[2022-07-27 16:00] VITALS: BP 95/68
--- NOTE | 2022-07-27 18:21 | NUR ---
RN-NOTES PATIENT IS VISIBLE IN THE UNIT, A/OX3 DENIES SI/HI .ENCOURAGED TO VERBALIZE FEELINGS AND CONCERN TO THE STAFF AND ATTEND GROUPS. PATIENT VERBALIZED UNDERSTANDING .ATTENDED GROUPS. COMPLIANT WITH MEDICATIONS.AMBULATORY STEADY GAIT. ALL NEEDS ATTENDED AND ANTICIPATED. WILL CONT. MONITORING FOR SAFETY AND BEHAVIOR.WILL ENDORSE TO INCOMING NURSE FOR THE CONTINUITY OF CARE.
--- NOTE | 2022-07-27 19:38 | NUR ---
RN NOTES: PATIENT WALKING AROUND THE UNIT ,AWAKE ALERT A/OX3. NO S/SX OF ACUTE DISTRESS NOTED ANXIOUS, EASILY AGITATED,HYPERVERBAL, NEEDY DEMENDANDING ,BIZARRE BEHAVIOR, TALIKG TO SELF , UNCOOPERTIVE, PARANOID ,NEEDS FREQUENTLY REDIRECTIONS, ENCOURAGED TO VERBALIZED ANY FEELING OR CONCERN ,SAFETY PRECAUTIONS MAINTAINED. WILL CONTINUE TO MONITOR Q15MIN ROUNDS FOR SAFETY.
[2022-07-27 20:00] VITALS: BP 97/69
[2022-07-27] MEDS: TRAZODONE 50 MG TABLET PO SCH (21:55)
[2022-07-27] MEDS: MELATONIN 3 MG PO SCH (22:22)
[2022-07-28 08:00] VITALS: BP 90/61
[2022-07-28] MEDS: PANTOPRAZOLE 40 MG TABLET.DR PO SCH (08:16)
[2022-07-28] MEDS: BUPROPION XL 150 MG TAB.ER.24 PO SCH (08:17)
[2022-07-28] MEDS: LamoTRIgine 25 MG TABLET PO SCH ×2 (08:27→21:09)
--- NOTE | 2022-07-28 13:22 | NUR ---
RN-CO: PATIENT DENIED PAIN AND DISCOMFORTS. VISIBLE IN THE UNIT,EASILY IRRITATED AND CAN BE INTRUSIVE. SHE IS ALSO ARGUMENTATIVE IF WANTS DOESN'T ATTEND RIGHT AWAY. I ENCOURAGED HER TO ATTEND GROUP ACTIVITIES.
[2022-07-28 16:00] VITALS: BP 102/75
[2022-07-28] MEDS: ENSURE ENLIVE 237 ML LIQUID (VANILLA) PO SCH (16:03)
[2022-07-28 20:48] VITALS: BP 106/59
[2022-07-28] MEDS: TRAZODONE 50 MG TABLET PO SCH (21:09)
[2022-07-28] MEDS: MELATONIN 3 MG PO SCH (21:31)
[2022-07-29] MEDS: ENSURE ENLIVE 237 ML LIQUID (VANILLA) PO SCH ×2 (07:48→17:21)
[2022-07-29] MEDS: PANTOPRAZOLE 40 MG TABLET.DR PO SCH (07:48)
[2022-07-29 08:00] VITALS: BP 103/62
[2022-07-29] MEDS: BUPROPION XL 150 MG TAB.ER.24 PO SCH (08:42)
[2022-07-29] MEDS: LamoTRIgine 25 MG TABLET PO SCH ×2 (08:42→21:03)
[2022-07-29 16:00] VITALS: BP 102/62
--- NOTE | 2022-07-29 18:43 | NUR ---
RN- CLOSING NOTES PATIENT AWAKE, SITTING IN THE DINING ROOM WATCHING TV, BREATHING EVEN AND NON LABORED WITH NO S/S OF DISTRESS. PATIENT IS ISOLATIVE AT TIMES, ANXIOUS, GUARDED, SUSPICIOUS, AND COOPERATIVE. PATIENT IS MEDICATION COMPLIANT. DENIES SI/HI AT THIS TIME. WILL CONTINUE TO MONITOR Q 15 MINUTES FOR SAFETY AND BEHAVIOR.
[2022-07-29] MEDS: ACETAMINOPHEN 325 MG TABLET PO PRN (20:23)
[2022-07-29 20:45] VITALS: BP 119/77
[2022-07-29] MEDS: MELATONIN 3 MG PO SCH (21:03)
[2022-07-29] MEDS: TRAZODONE 50 MG TABLET PO SCH (21:03)
[2022-07-30] MEDS: PANTOPRAZOLE 40 MG TABLET.DR PO SCH (07:35)
[2022-07-30 08:00] VITALS: BP 104/59
[2022-07-30] MEDS: LamoTRIgine 25 MG TABLET PO SCH (08:18)
[2022-07-30] MEDS: BUPROPION XL 150 MG TAB.ER.24 PO SCH (08:18)
[2022-07-30] MEDS: ENSURE ENLIVE 237 ML LIQUID (VANILLA) PO SCH (08:19)
--- NOTE | 2022-07-30 08:23 | NUR ---
SW Discharge Note: Patient will discharged back home located at [address] [facility] [address], [place] [address]; ([phone]). Patients daughter Meenakshi ([phone]) will picking table worker pt at 11AM. Pt is alert and oriented x3. Pt happy to be going to the facility. Pt denies suicidal or homicidal ideation. Pt denies visual/auditory hallucinations. Pt will follow up with (Stoker Installer) Dr. Medeiros located at [address] [place] [address]; . Patient will follow-up with Dr. Swann (psychiatrist) [address] [address]; ([phone]). Pt presents with euthymic mood and congruent affect.
--- NOTE | 2022-07-30 12:05 | NUR ---
WARP SPLITTER NOTE 61 Y/O FEMALE DISCHARGED TO HOME IN STABLE CONDITION PT LEFT WITH DAUGHTER IN [place]. PT COMPLIANT WITH MEDICATIONS, COOPERATIVE WITH TREATMENT PLANS. PT DENIES SI/HI/AVH AND INSTRUCTED TO GO TO THE CLOSEST ER IF DEVELOPING SI/HI. BEHAVIOR IMPROVED, PSYCHIATRIC TX PLAN MET, MEDICAL TX PLANS DEFERRED FOR HER TO FOLLOW UP WITH PRIMARY PHYSICIAN. EDUCATED PT ABOUT AFTER CARE PLAN AND COPY PROVIDED. RETURNED PERSONAL BELONGINGS AND VALUABLES TO PT. PRESCRIPTION GIVEN TO PT FOR PSYCHIATRIC MEDICATIONS PT SIGNED ALL DISCHARGE PAPERWORK NO WOUNDS AT TIME OF DISCHARGE. PT LEFT UNIT AT 1205 WITH DAUGHTER IN LAW.
[2022-07-30] MEDS ORDERED: ATORVASTATIN 10 MG TABLET PO SCH (22:00)
== END 2022-07-30 12:05 | disposition home or self-care (01) | DRG 885 ==
LOC: ER 11:37 → GPS 18:28
PROVIDERS: ADMIT Psychiatry & Neurology Psychiatry; ATTEND Nurse Practitioner Acute Care
DX: F31.9 Bipolar disorder, unspecified (principal); R45.851 Suicidal ideations; C91.01 Acute lymphoblastic leukemia, in remission; K21.9 Gastro-esophageal reflux disease without esophagitis; R73.03 Prediabetes; K58.9 Irritable bowel syndrome, unspecified; G43.909 Migraine, unspecified, not intractable, without status migrainosus; F43.10 Post-traumatic stress disorder, unspecified; E78.5 Hyperlipidemia, unspecified; Z91.81 History of falling; Z79.899 Other long term (current) drug therapy; Z90.710 Acquired absence of both cervix and uterus; Z90.49 Acquired absence of other specified parts of digestive tract; F11.11 Opioid abuse, in remission; Z88.8 Allergy status to other drugs, medicaments and biological substances; Z91.410 Personal history of adult physical and sexual abuse
CPT/HCPCS: 36415; 73060-TC; 73080-TC; 73090-TC; 80048-TC; 80053-TC; 80061-TC; 80076-TC; 82607-TC; 84443-TC; 85025-TC; 87081-TC; 97112-TC; 97116-TC; 97530-TC; C9803; G0480; J1630; J2060